=== PATIENT | female | born 1995 | race Caucasian/White ===

== ENCOUNTER → 2018-07-19 08:19 | Outpatient (CLI) | payer OTHER, SELFPAY ==
--- NOTE | 2018-07-19 | DI.ECHO.S_ITS ---
[facility] +---------+ : : [address] : [place] : : : : [id number] : : : : Phone: [phone]+ Echocardiogram Report + + :Name: NIC ABRAMS Study Date: 07/19/2018 Height: 68 in : :[facility] Exam Location: [facility] Weight: 170 lb : : Gender: Female BSA: 1.9 m2 : :: 1995 Age: 23 yrs BP: 120/85 mmHg: :Reason For Study: Murmur : : Performed By: Casie Page : :Referring: JACK DONNELLY : + + Interpretation Summary The left ventricle is normal in size, wall thickness, and systolic function without any focal wall motion abnormalities with the ejection fraction visually estimated to be 60-65%. Assessment of diastolic parameters indicates normal left ventricular diastolic function and normal filling pressures. The right ventricle is normal in size and function. Pulmonary artery pressures cannot be estimated because of the lack of a measurable TR jet velocity but the IVC suggests a low right atrial pressure of 3 mm Hg. Both atria are normal in size. There is no significant valvular heart disease. While the mitral valve leaflets appear borderline thickened with a flat closure plane, there is no evidence of mitral valve prolapse and only trace mitral regurgitation. Procedure: A two-dimensional transthoracic echocardiogram with color flow and Doppler was performed. The study quality was technically good. There is no prior echocardiogram noted for this patient. The patient was in normal sinus rhythm during the exam. Left Ventricle: The left ventricle is normal in size, wall thickness, and systolic function without any focal wall motion abnormalities. The ejection fraction is estimated to be 60-65%. Assessment of diastolic parameters indicates normal left ventricular diastolic function and normal filling pressures. Right Ventricle: The right ventricle is normal in size and function. Atria: Both atria are normal in size. There is no Doppler evidence for an interatrial shunt. Mitral Valve: The mitral valve leaflets appear borderline thickened, but open well. There is a flat closure plane of the the mitral valve leaflets. There is no evidence of mitral valve prolapse. There is trace mitral regurgitation. Aortic Valve: The aortic valve is trileaflet. The aortic valve opens well. No aortic regurgitation is present. Tricuspid Valve: The tricuspid valve is normal in structure and function. There is trace tricuspid regurgitation. Pulmonary artery pressures cannot be estimated because of the lack of a measurable TR jet velocity. Pulmonic Valve: The pulmonic valve is not well visualized. There is trace pulmonic regurgitation. There is no significant valvular heart disease. Great Vessels: The aortic root is normal size. The dimensions of the ascending aorta are normal. The aortic arch is normal in size. The pulmonary artery is not well visualized, but is probably normal size. The IVC is of normal diameter and collapses greater than 50% with a sniff. This suggests a low right atrial pressure of 3 mm Hg. Pericardium/ Pleura There is no pericardial effusion. There is no pleural effusion. MMode/2D Measurements & Calculations LVIDd: 4.7 cm LVOT diam: 2.0 cm LVIDs: 2.9 cm Ao root diam: 2.6 cm FS: 36.8 % asc Aorta Diam: 2.3 cm EPSS: 0.38 cm Ao Arch Diam (Prox Trans): 2.1 cm IVSd: 0.80 cm LVPWd: 0.69 cm LV dangelo. diameter/BSA (cm/m^2): 2.4 LV sys. diameter/BSA (cm/m^2): 1.5 LA A2 area: 20.9 cm2 RA long axis: 4.8 cm LA A4 area: 20.5 cm2 RA area: 14.3 cm2 LA length (vol): 6.0 cm RA vol: 36.1 ml LA vol: 60.6 ml RA : 18.9 ml/m2 LA vol index: 31.8 ml/m2 IVC diam: 2.0 cm RVD1 (basal): 3.6 cm TAPSE: 3.0 cm Doppler Measurements & Calculations Ao V2 max: 119.4 cm/sec LVOT Max Scott: 100.1 cm/sec Ao V2 mean: 83.0 cm/sec LV V1 max P.0 mmHg Ao max P.7 mmHg LV V1 VTI: 20.4 cm Ao mean P.0 mmHg NAKIA(I,D): 2.5 cm2 Ao V2 VTI: 26.2 cm NAKIA(V,D): 2.7 cm2 sev ratio: 0.78 NAKIA indexed to BSA (cm^2/m^2): 1.3 MV E max scott: 82.6 cm/sec TR max scott: 173.6 cm/sec MV A max scott: 33.9 cm/sec TR max P.1 mmHg MV E/A: 2.4 PA V2 max: 65.5 cm/sec Med Peak E' Scott: 11.7 cm/sec PA V2 mean: 47.8 cm/sec E/E' med: 7.1 PA mean P.00 mmHg Lat Peak E' Scott: 22.0 cm/sec PA Accel Time: 0.19 sec E/E' lat: 3.8 E/e' average: 5.4 MV dec time: 0.25 sec MV P1/2t: 71.0 msec MV P1/2t max scott: 81.6 cm/sec MVA(P1/2t): 3.1 cm2 Reading Physician:[email or web address]
== END ==
PROVIDERS: PCP General Practice; Visit Provider Physician Assistant
DX: R01.1 Cardiac murmur, unspecified (principal)
CPT/HCPCS: 93306